=== PATIENT | male | born 1980 | race Caucasian/White ===

== ENCOUNTER 2024-11-09 10:44 | Inpatient (IN) | payer OTHER ==
[2024-11-09 11:02] VITALS: BMI 24.4
[2024-11-09] MEDS ORDERED: hydrOXYzine PAMOATE 25 MG CAPSULE (FP) PO PRN (11:16)
[2024-11-09] MEDS ORDERED: LOPERAMIDE HCL 2 MG CAPSULE PO PRN (11:16)
[2024-11-09] MEDS ORDERED: NALOXONE (NARCAN) HCL 4 MG/0.1 ML SPRAY NS PRN (11:16)
[2024-11-09] MEDS ORDERED: POLYETHYLENE GLYCOL (HEALTHYLAX) 3350 17 GM PACKET PO PRN (11:16)
[2024-11-09] MEDS ORDERED: NICOTINE POLACRILEX 2 MG LOZENGE BC PRN (11:16)
[2024-11-09] MEDS ORDERED: IBUPROFEN 400 MG TABLET (FP) PO PRN (11:16)
[2024-11-09] MEDS ORDERED: guaiFENesin 600 MG TABLET.ER (FP) PO PRN (11:16)
[2024-11-09] MEDS ORDERED: BENZONATATE 200 MG CAPSULE PO PRN (11:16)
[2024-11-09 12:39] LABS: URINE APPEARANCE CLEAR; URINE BILIRUBIN NEGATIVE (NEGATIVE); URINE COLOR YELLOW; URINE GLUCOSE (UA) NEGATIVE (NEGATIVE); URINE KETONE NEGATIVE (NEGATIVE); URINE LEUK ESTERASE NEGATIVE (NEGATIVE); URINE NITRITE NEGATIVE (NEGATIVE); URINE PROTEIN NEGATIVE (NEGATIVE); URINE UROBILINOGEN 0.2 mg/dL (0.2-1.0)
[2024-11-09] MEDS: FLUDROCORTISONE ACETATE 0.1 MG TABLET (FP) PO SCH ×2 (14:30→15:55)
[2024-11-09] MEDS: TUBERCULIN PPD 5 TU/0.1ML SYRINGE (IN PATIENT USE ONLY) ID ONE (15:57)
[2024-11-09] MEDS: MELATONIN 5 MG TABLETS PO SCH (22:49)
[2024-11-09] MEDS: THIAMINE 100 MG TABLET PO SCH (22:49)
[2024-11-10] MEDS: PRENATAL VITAMINS W/ FOLIC ACID TABLET (FP) PO SCH (10:47)
[2024-11-10] MEDS: DEXAMETHASONE 0.5 MG TABLET PO SCH (11:00)
[2024-11-10 11:49] LABS: MCHC 33.9 g/dl (32.3-36.5); MEAN CELL VOLUME 88.1 fl (79.0-92.2); MEAN PLT VOLUME 10.2 fl (9.4-12.4); RDW 13.1 % (12.1-15.9)
[2024-11-10] MEDS: ACETAMINOPHEN 325 MG TABLET (FP) PO PRN (11:55)
[2024-11-10 12:43] LABS: CO2 25 mmol/L (21-32); GLUCOSE,RANDOM 116 mg/dL (74-106)
[2024-11-10 12:46] LABS: CREATININE 0.9 mg/dL (0.55-1.3); SGOT/AST 31 U/L (15-37); SGPT/ALT 24 U/L (13-61)
[2024-11-10 12:48] LABS: TOT PROT 6.8 g/dl (6.4-8.2)
[2024-11-10 12:49] LABS: ALK PHOS 88 U/L (45-117)
[2024-11-10] MEDS: MIRTAZAPINE 15 MG TABLET (FP) PO SCH (21:16)
[2024-11-11] MEDS: IBUPROFEN 600 MG TABLET (FP) PO PRN (06:14)
[2024-11-11] MEDS: GABAPENTIN 100 MG CAPSULE PO SCH (14:38)
[2024-11-11] MEDS: NALTREXONE HCL 50 MG TABLET PO ONE (14:39)
[2024-11-11] MEDS: LIDOCAINE 5% TOPICAL PATCH TP SCH (15:32)
[2024-11-11] MEDS: MIRTAZAPINE 15 MG TABLET (FP) PO SCH (21:04)
[2024-11-11] MEDS: LIDOCAINE PATCH REMOVAL MC SCH (21:10)
[2024-11-12] MEDS: NALTREXONE HCL 50 MG TABLET PO SCH (10:05)
[2024-11-12] MEDS: MAGNESIUM HYDROX 2400MG/30ML ORAL SUSPENSION 30 ML CUP PO PRN (14:50)
[2024-11-13] MEDS: SODIUM CHLORIDE NASAL SPRAY 44 ML BOTTLE NS PRN (15:58)
[2024-11-13] MEDS: MAG HYDROX/AL HYDROX/SIMETH 30 ML UNIT-DOSE CUP PO PRN (19:21)
[2024-11-22] MEDS: NICOTINE POLACRILEX 2 MG GUM BUC PRN (06:10)
[2024-11-24] MEDS: GABAPENTIN 100 MG CAPSULE PO SCH (13:06)
[2024-11-25] MEDS: BENZOCAINE/MENTHOL (CHLORASEPTIC ) LOZENGE MM PRN (10:35)
[2024-11-26] MEDS: GABAPENTIN 300 MG CAPSULE PO SCH (13:21)
[2024-12-08 07:22] VITALS: BP 107/70; PULSE 71; RESP 17; TEMP 97.8
== END 2024-12-08 09:32 | disposition home or self-care (01) | DRG 772 ==
LOC: YASAS 10:44 → Y3NR 11:57 → Y3E 11-10 09:46
PROVIDERS: ADMIT Neuromusculoskeletal Medicine & OMM; ATTEND Psychiatry & Neurology Pain Medicine
PROC: HZ42ZZZ Group Counseling for Substance Abuse Treatment, Cognitive-Behavioral (ICD-10-PCS; principal; 2024-11-09)
DX: F14.20 Cocaine dependence, uncomplicated (principal); E27.40 Unspecified adrenocortical insufficiency; W17.89XA Other fall from one level to another, initial encounter; Y93.9 Activity, unspecified; Y92.89 Other specified places as the place of occurrence of the external cause; Y99.8 Other external cause status
CPT/HCPCS: 36415; 73502-TC-LT-FY; 80053; 80305; 80307; 81003; 85027; 86780; 87811; 93005; 93010